=== PATIENT | female | born 1965 | race Caucasian/White ===

== ENCOUNTER 2018-11-05 11:10 | Inpatient (IN) ==
[2018-11-05] MEDS ORDERED: LR 1,000 ML ONE (12:10)
[2018-11-05] MEDS ORDERED: TRANSDERM-SCOP ONE (12:15)
[2018-11-05] MEDS ORDERED: DIPRIVAN 1% ONE (12:27)
[2018-11-05] MEDS ORDERED: FENTANYL ONE (12:27)
[2018-11-05] MEDS ORDERED: VERSED ONE (12:32)
[2018-11-05] MEDS ORDERED: TOBRAMYCIN POWDER ONE (12:43)
[2018-11-05] MEDS ORDERED: NEOSPORIN G.U. IRRIGANT ONE ×2 (12:47→13:45)
[2018-11-05] MEDS ORDERED: VANCOMYCIN ONE (12:47)
[2018-11-05] MEDS ORDERED: VANCOMYCIN 1 GM/NS 1 GM/250 ML IVPB ONE (13:02)
[2018-11-05] MEDS ORDERED: DECADRON ONE (13:54)
[2018-11-05] MEDS ORDERED: ZOFRAN ONE (13:54)
[2018-11-05] MEDS ORDERED: OFIRMEV 1000 MG/ISOTONIC SOLN 1,000 MG/100 ML BOTTLE ONE (13:54)
[2018-11-05] MEDS: DILAUDID ONE ×3 (15:10→23:09)
[2018-11-05] MEDS: PHENERGAN ONE ×2 (15:12→23:09)
[2018-11-05] MEDS ORDERED: NS 1,000 ML ONE (15:15)
[2018-11-05] MEDS: OFIRMEV 1000 MG/ISOTONIC SOLN 1,000 MG/100 ML BOTTLE ONE ×2 (15:27→23:09)
[2018-11-05 16:02] LABS: BASO# 0.02 X1000 (0.0-0.2); BASO% 0.4 % (0.0-0.8); EOS# 0.07 X1000 (0.0-0.7); EOS% 1.3 % (0.0-10.0); HEMATOCRIT 36.1 % (37.0-47.0); HEMOGLOBIN 11.4 g/dL (12.0-16.0); LYMPH# 0.82 X1000 (1.2-3.4); LYMPH% 15.1 % (20.5-51.1); MCHC 31.6 g/dL (33-37); MCV 91.9 FL (81-99); MONO# 0.19 X1000 (0.11-0.59); MONO% 3.5 % (1.7-9.3); MPV 9.9 FL (7.4-10.4); NEUT# 4.33 X1000 (1.4-6.5); NEUT% 79.7 % (42.2-75.2); PLT 324 X1000 (130-400); RBC 3.93 XMIL (4.2-5.4); RDW 14.3 % (11.5-14.5); WBC 5.43 X1000 (4.8-10.8)
[2018-11-05 16:24] LABS: AGAP 14; BUN 11 mg/dL (8-22); CALCIUM 8.9 mg/dL (8.8-10.2); CHLORIDE 104 mmol/L (98-107); COSMO 286; CREATININE 0.6 mg/dL (0.5-0.9); ESTIMATED GFR > 60; GLUCOSE 132 mg/dL (70-104); POTASSIUM 3.8 mmol/L (3.5-5.1); SODIUM 143 mmol/L (136-145); TCO2 25 mmol/L (25-35)
[2018-11-05 17:09] LABS: SED RATE 32 mm/hr (0-20)
[2018-11-05] MEDS ORDERED: OXY IR PO PRN ×2 (17:30)
[2018-11-05] MEDS: MORPHINE IV PRN ×3 (17:40→22:36)
[2018-11-05] MEDS ORDERED: ZOFRAN IV PRN (17:45)
[2018-11-05] MEDS ORDERED: VANCOMYCIN IV PER PHARMACY MISC SCH (18:00)
[2018-11-05] MEDS ORDERED: VANCOMYCIN 1 GM/NS 1 GM/250 ML IVPB IV ONE (18:00)
[2018-11-05] MEDS: NS 1,000 ML IV SCH (19:05)
[2018-11-05] MEDS: PERIDEX MT SCH (22:36)
--- NOTE | 2018-11-06 00:31 | OPERATIVE NOTE ---
PROCEDURE DATE: 11/05/2018 PREOPERATIVE DIAGNOSIS: Wound dehiscence, status post left total knee arthroplasty. POSTOPERATIVE DIAGNOSIS: Wound dehiscence, status post left total knee arthroplasty, with dehiscence of the superior portion of the arthrotomy. PROCEDURES: Irrigation and debridement, left total knee arthroplasty, with polyethylene exchange and application of antibiotic beads. SURGEON: Christo Mills MD. TECHNICAL ENGINEER: Derrek Locke RN. ANESTHESIA: General. INTRAVENOUS FLUIDS: 1100 mL lactated Ringer's. ESTIMATED BLOOD LOSS: 50 mL. TOURNIQUET TIME: 100 minutes at 350 mmHg. COMPLICATIONS: None. INDICATION: The patient is a pleasant, 53-year-old female who is approximately 1 month status post left total knee arthroplasty. The patient has had continued serous type drainage to a small wound on the superior aspect of the incision. She also required extraction of an abscessed tooth earlier this week. Given the patient's continued drainage and her clinical history, recommendation is to proceed with irrigation and debridement with possible polyethylene exchange and application of antibiotic beads, depending on the intraoperative findings. Risks and benefits of surgery were explained, including the risks of anesthesia, , bleeding, infection, failure to relieve, postoperative stiffness, nerve injury, blood clots, and other imponderables. All questions were answered. The patient wished to proceed with surgery. DETAILS OF OPERATION: The patient was taken to the operating room and placed supine on the operating table. Once adequate anesthesia was obtained, patient's left lower extremity was subsequently prepped and draped in the usual sterile fashion. An Esmarch was used to exsanguinate the left lower extremity, and the tourniquet was inflated to 350 mmHg. A standard incision was made through the previous surgical incision. There was some serous type fluid expressed. Intraoperative cultures were obtained at the site of the bursa. After further dissection was conducted, the incision was extended distally. The patient did have a defect in the arthrotomy just superior to the medial patella. It tracked to the joint. Given this finding, the arthrotomy was opened more distally because of communication of the joint. Debridement was conducted. The polyethylene was removed. A total of 6000 mL of antibiotic pulsatile lavage along with 1 bottle of Chyna were used to copiously irrigate the joint and the wound of the knee. After this had been performed, the size 8 mm rotating platform tibial insert was then placed. It appeared to have good stability and good patellofemoral tracking. After this was performed, antibiotic beads were then placed intra-articularly. A 1/8 Hemovac drain was placed and was not sewn in. A #1 Vicryl then used to repair the arthrotomy, and after closure the arthrotomy, antibiotic beads were placed in the suprapatellar bursal region as well. A 2-0 Vicryl was then used to repair the subcutaneous tissue, followed by an interrupted 0 Prolene suture. Some 2-0 Prolene was used on the inferior aspect of the wound as well. It appeared to have good repair. The knee was then flexed. Adaptic, sterile 4 x 4's, Webril, cryo unit, and Hilario wrap were applied to the left lower extremity. The patient tolerated the procedure well with no complications. She was transferred to the recovery room in stable condition. cc: Christo Mills MD MTDD
[2018-11-06] MEDS ORDERED: XANAX PO PRN (02:04)
[2018-11-06] MEDS: MORPHINE IV PRN ×4 (03:28→18:33)
[2018-11-06 06:47] LABS: HEMATOCRIT 34.6 % (37.0-47.0); HEMOGLOBIN 10.9 g/dL (12.0-16.0)
[2018-11-06 07:15] LABS: AGAP 12; BUN 7 mg/dL (8-22); CALCIUM 9.3 mg/dL (8.8-10.2); CHLORIDE 104 mmol/L (98-107); COSMO 279; CREATININE 0.4 mg/dL (0.5-0.9); ESTIMATED GFR > 60; GLUCOSE 159 mg/dL (70-104); POTASSIUM 4.1 mmol/L (3.5-5.1); SODIUM 139 mmol/L (136-145); TCO2 23 mmol/L (25-35)
--- NOTE | 2018-11-06 08:02 | PROGRESS NOTE ---
DATE: 11/06/2018 SUBJECTIVE: The patient is a pleasant 53-year-old female who is 1 day status post I D with polyethylene exchange and application of antibiotic beads for a left total knee arthroplasty. She is currently resting comfortably. Has no complaints this morning. OBJECTIVE: The patient is afebrile. Her left lower extremity dressing is intact. Calf is soft. Active dorsiflexion and plantar flexion. Her cultures are pending. Her hemoglobin is 10.9, hematocrit is 34.6. IMPRESSION: Postoperative day #1, status post I and D and polyethylene exchange and application of antibiotic beads. PLAN: At this point, we will continue with her IV antibiotics and await the culture results. cc: Christo Mills MD
[2018-11-06] MEDS: CELEBREX PO SCH (08:09)
[2018-11-06] MEDS: HYDROCHLOROTHIAZIDE PO SCH (08:09)
[2018-11-06] MEDS: PRINIVIL PO SCH (08:10)
[2018-11-06] MEDS: CATAPRES PO SCH ×3 (08:10→19:38)
[2018-11-06] MEDS: CARDIZEM CD PO SCH (08:10)
[2018-11-06] MEDS: ASPIRIN PO SCH (08:10)
[2018-11-06] MEDS: PAXIL PO SCH (08:10)
[2018-11-06] MEDS: DOXYCYCLINE PO SCH (08:11)
[2018-11-06] MEDS: XARELTO PO SCH (08:11)
[2018-11-06] MEDS: PERIDEX MT SCH ×2 (08:11→22:22)
[2018-11-06] MEDS: VANCOMYCIN 2,000 MG in NS 500 ML IV SCH (12:05)
[2018-11-06] MEDS: NS 1,000 ML IV SCH (12:06)
[2018-11-07] MEDS: MORPHINE IV PRN ×6 (00:27→21:05)
[2018-11-07] MEDS: VANCOMYCIN 2,000 MG in NS 500 ML IV SCH (05:02)
[2018-11-07 06:46] LABS: HEMATOCRIT 32.2 % (37.0-47.0)
[2018-11-07] MEDS: CELEBREX PO SCH (07:59)
[2018-11-07] MEDS: HYDROCHLOROTHIAZIDE PO SCH (08:00)
[2018-11-07] MEDS: CARDIZEM CD PO SCH (08:00)
[2018-11-07] MEDS: DOXYCYCLINE PO SCH (08:00)
[2018-11-07] MEDS: PERIDEX MT SCH ×2 (08:00→21:07)
[2018-11-07] MEDS: PAXIL PO SCH (08:00)
[2018-11-07] MEDS: PRINIVIL PO SCH (08:00)
[2018-11-07] MEDS: XARELTO PO SCH (08:00)
[2018-11-07] MEDS: ASPIRIN PO SCH (08:01)
[2018-11-07] MEDS: CATAPRES PO SCH ×3 (08:01→16:52)
--- NOTE | 2018-11-07 08:25 | PROGRESS NOTE ---
DATE: 11/07/2018 SUBJECTIVE: The patient is a 53-year-old female who is 2 days status post incision and drainage and polyethylene exchange and application antibiotic beads for a left total knee arthroplasty. She is currently resting comfortably. She has some expected soreness about the knee. OBJECTIVE: Vital signs: Stable. She was afebrile. Left lower extremity: Wound looks good. There is no evidence of cellulitic streaking. Calf is soft. Active dorsiflexion, plantar flexion. LABORATORY: Her cultures were negative. IMPRESSION: Status post incision and drainage, polyethylene exchange and application antibiotic beads for wound dehiscence left total knee arthroplasty. PLAN: At this point, we will consult Dr. Werner for evaluation and recommendation given the communication to the joint. We will maintain the patient on IV antibiotics at this time. cc: Christo Mills MD
[2018-11-07] MEDS: NS 1,000 ML IV SCH (10:12)
[2018-11-07] MEDS: INVANZ 1 GM/NS 1 GM/50 ML IVPB IV SCH (11:57)
--- NOTE | 2018-11-07 13:42 | INFECTIOUS DISEASE CONSULT REP ---
DATE: 11/07/2018 CONCLUSION: The patient has had clear serous fluid drainage from her left total knee arthroplasty since October 06 when there was a small dehiscence of the wound. Approximately 5 days ago, the patient had 3 abscessed teeth pulled and an infected filling was also removed. RECOMMENDATIONS: I have started the patient on a combination of vancomycin and ertapenem. Some of the side effects of the antibiotics, including rash, diarrhea, seizures, tendon rupture, renal toxicity and ototoxicity have been explained to the patient who agrees with treatment. I plan to continue the antibiotics for 5 days after the patient is discharged from the hospital tomorrow, and then after that the patient will be started on Augmentin 875 mg p.o. every 12 hours and doxycycline 100 mg p.o. every 12 hours, both for 10 more days following the IV antibiotics. I plan to have the patient come to my office in 2 weeks. I have sent the patient' s prescriptions for Augmentin and doxycycline electronically to the pharmacy of her choice. DISCUSSION: The patient had a total knee arthroplasty performed on the left knee. On October 06, there was partial dehiscence of the wound and the knee began to drain as mentioned above, with clear serous fluid. Cultures of the drainage have all been negative. Gram stain showed no organisms. The patient 5 days ago had 3 abscessed teeth removed and an infected filling was removed from another tooth. The patient's laboratory studies show a CBC with a white count of 5430, hemoglobin is 10 and platelet count is 324,000 creatinine is 0.4, GFR is greater than 60. The sedimentation rate is 32. Cultures from the patient's knee are negative and the Gram stain showed no bacteria. The patient underwent surgery performed by Dr. Mills. He did irrigation, debridement and poly exchange. He did find that there was a defect in the arthrotomy which tracked to the joint. PAST MEDICAL HISTORY/REVIEW OF SYSTEMS: Eyes and ears: The patient's hearing is good. She wears glasses. Neck: No stiffness. Respiratory: No cough or shortness of breath. Cardiac: No chest pain or palpitations. GI: No nausea, vomiting, or diarrhea. Genitourinary: No dysuria or flank pain. Neurologic: No seizures and no loss of motor function. Endocrine: Patient is diabetic, but does not have thyroid problem. Integument: No rash. FOREIGN CORRESPONDENT: The patient has never been . PREVIOUS HOSPITALIZATIONS AND OPERATIONS: She has had bilateral total knee arthroplasties and before those surgeries, she did have a surgical procedure on her knee that was not a total knee arthroplasty. The patient has also had a gastric bypass and tummy tuck. She has also had a tonsillectomy. MEDICAL DISEASES: Positive for hypertension. Patient is obese. INFECTIOUS DISEASE HISTORY: Positive for pneumonia and UTI. FAMILY HISTORY: Positive for diabetes mellitus, hypertension, myocardial infarction, stroke, and cancer. SOCIAL HISTORY: [place] She is single. She lives alone with her 3 dogs. 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 MEDICATIONS TAKEN AT HOME: Xanax, Augmentin, Celebrex, Catapres, diltiazem, doxycycline, hydrochlorothiazide, lisinopril, oxycodone, Paxil, and Xarelto. PHYSICAL EXAMINATION: Vital Signs: Temperature is 97.9 degrees, pulse 64, respirations 24, blood pressure 139/74. Height/weight: The patient is 5 feet 2 inches tall, weighs 240 pounds. Head eyes, ears, nose, and throat: She can hear my spoken words and see near objects. There is no drainage from the infected teeth sites. Neck: No stiffness. Lungs: Clear to auscultation. Cardiovascular: Regular heart rate. Abdomen: Soft and nontender. Neurologic : The patient is alert. She can move her extremities. There is no tremor. Her sensations are intact to touch. Her memory as regarding her medical history was intact. Extremities: The patient's left knee incision is intact. The clips are still in. There is no erythema and no drainage coming from the knee. Thank you for the consult. cc: MD Christo Grant MD [facility]
[2018-11-08] MEDS: MORPHINE IV PRN (03:56)
[2018-11-08] MEDS ORDERED: VANCOMYCIN 2,000 MG in NS 500 ML IV SCH (06:00)
[2018-11-08 06:10] LABS: INR 1.1; PROTIME 15.1 Seconds (11.0-16.0)
--- NOTE | 2018-11-08 06:57 | PROGRESS NOTE ---
DATE: 11/08/2018 SUBJECTIVE: The patient is a pleasant, 53-year-old female who is 3 days status post I and D for a wound dehiscence with polyethylene exchange and application of antibiotic beads. The patient has had an uneventful postoperative course. She has been maintained on IV antibiotics. She has remained afebrile. OBJECTIVE: On physical exam, the patient's left lower extremity wound overall looks good. There is no evidence of cellulitic streaking. Calf is soft. Active dorsiflexion and plantar flexion. LABORATORY DATA: Cultures were negative. IMPRESSION: Status post incision and drainage, with polyethylene exchange and application of antibiotic beads for wound dehiscence. PLAN: Dr. Werner has been consulted for ID and recommendation for course of home IV antibiotics for 5 days, followed by conversion to p.o. antibiotics for 10 more days. The cultures have remained negative. She is ambulating well. She is scheduled to undergo a PICC line today, and will plan on discharging home after this is completed and home IV antibiotics have been arranged. The patient will follow up in the office in 2 weeks. cc: Christo Mills MD
[2018-11-08] MEDS ORDERED: NS 250 ML ONE (08:19)
[2018-11-08] MEDS: CATAPRES PO SCH ×2 (10:39→15:54)
[2018-11-08] MEDS: ASPIRIN PO SCH (10:39)
[2018-11-08] MEDS: PRINIVIL PO SCH (10:40)
[2018-11-08] MEDS: XARELTO PO SCH (10:40)
[2018-11-08] MEDS: PAXIL PO SCH (10:40)
[2018-11-08] MEDS: CARDIZEM CD PO SCH (10:41)
[2018-11-08] MEDS: PERIDEX MT SCH (10:41)
[2018-11-08] MEDS: CELEBREX PO SCH (10:41)
[2018-11-08] MEDS: HYDROCHLOROTHIAZIDE PO SCH (10:42)
[2018-11-08] MEDS: INVANZ 1 GM/NS 1 GM/50 ML IVPB IV SCH (12:47)
[2018-11-08 16:19] VITALS: BP 96/63
== END 2018-11-08 17:15 | disposition home health service (06) | DRG 908 ==
LOC: OR 11:10 → 4N 16:19 → OBSVTOIN 16:19 → INTOOBSV 16:19
PROVIDERS: ADMIT Orthopaedic Surgery Adult Reconstructive Orthopaedic Surgery; ATTEND Orthopaedic Surgery Adult Reconstructive Orthopaedic Surgery
CPT/HCPCS: 36569; 80048; 85014; 85018; 85025; 85610; 85651; 87070; 87075; 87205; 94761; 94799; 97162; 97530; A9270; G8978; G8979; J0131; J1100; J1170; J1335; J2250; J2270; J2405; J2550; J3010; J3260; J3370; J7030; J7040; J7050; J7120